=== PATIENT | male | born 1970 | race Asian ===

== ENCOUNTER 2025-08-14 00:52 | Emergency (ER) | payer MEDICAID ==
[~2025-08-14] VITALS: Ht 167.6 cm; Wt 63.6 kg
[2025-08-14 01:00] VITALS: BP 103/69; RESP 16; O2SAT 96
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
[2025-08-14 01:43] VITALS: PULSE 92; TEMP 98.7
== END 2025-08-14 01:45 | disposition home or self-care (01) ==
LOC: ER 00:54
DX: Z00.00 Encounter for general adult medical examination without abnormal findings (principal); V89.2XXA Person injured in unspecified motor-vehicle accident, traffic, initial encounter; Y93.89 Activity, other specified; Y92.89 Other specified places as the place of occurrence of the external cause; Y99.8 Other external cause status
CPT/HCPCS: 70450; 99284